=== PATIENT | female | born 1980 | race Caucasian/White ===

== ENCOUNTER 2016-11-30 11:01 | Emergency (ER) | payer OTHER ==
--- NOTE | 2016-11-30 13:18 | EDM.PDOC ---
ED HPI GENERAL MEDICAL PROBLEM - General Chief Complaint: General Stated Complaint: BLOOD CLOTS/BRAIN NOT RIGHT Time Seen by Provider: 11/30/16 12:40 Source of Information: Reports: Patient History Limitations: Reports: No limitations - History of Present Illness INITIAL COMMENTS - FREE TEXT/NARRATIVE: HISTORY AND PHYSICAL: History of present illness: Patient is an obese 36-year-old female presents to the emergency department with concerns about increasing shortness of breath and some atypical chest pain. She states for the last week she has noticed that she is more short of breath with exerting herself or going upstairs. She also has had some centralized chest pain and pressure that does not change with activity or rest. She has not had cough or fever. She feels like she has a difficult time taking a deep breath even here at rest. She has had a DVT and PE in the past. PE was in May of last year. She started Xarelto again at that time and has been told she will need it for life. She has been diagnosed with a protein C deficiency by Dr. Ramachandran in oncology. She feels like her very strong history of anxiety clouds the picture and she can't tell sometimes if the symptoms are related to anxiety or something else. She states she definitely gets much more anxious when there is anything wrong with her help and she gets more worried and this precipitates a bad cycle. She did take her Klonopin about an hour and half prior to arrival but doesn't feel like it is helping her symptoms. No nausea or vomiting. She has had some "heaviness" and tingling in her feet but no calf pain or swelling. She smokes and drinks wine about 4 times a week. No control pills. Review of systems: As per history of present illness and below otherwise all systems reviewed and negative. Past medical history: As per history of present illness and as reviewed below otherwise noncontributory. Surgical history: As per history of present illness and as reviewed below otherwise noncontributory. Social history: No reported history of drug or alcohol abuse. Family history: As per history of present illness and as reviewed below otherwise noncontributory. Physical exam: General. Non toxic, no acute distress. Vitals reviewed and stable. She is very tearful. HEENT: Atraumatic, normocephalic, pupils reactive, negative for conjunctival pallor or scleral icterus, mucous membranes moist, throat clear, neck supple, nontender, trachea midline. Lungs: Clear to auscultation, breath sounds equal bilaterally, chest nontender. Heart: S1S2, regular, negative for clicks, rubs, or JVD. Abdomen: Soft, nondistended, nontender. Negative for masses or hepatosplenomegaly. Negative for costovertebral tenderness. Pelvis: Stable nontender. Genitourinary: Deferred. Rectal: Deferred. Extremities: Atraumatic, negative for cords or calf pain. Neurovascular unremarkable. Neuro: Awake, alert, oriented. Cranial nerves II through XII unremarkable. Cerebellum unremarkable. Motor and sensory unremarkable throughout. Exam nonfocal. Diagnostics: CT angio chest, cbc, cmp, troponin, ekg Impression: #1: Atypical chest pain #2: Dsypnea on exertion Plan: The patient's chest pain was not worsened with exertion or made better with rest. She did have some exertional dyspnea and this is been going on for about a week. She does have history of PEs but is taking her xarelto as prescribed. Cardiac workup, ekg and CT chest angio were all negative. The patient had normal vital signs during her stay in the ED and felt better upon reevaluation, with no therapy. She was comfortable with our workup and with discharge. We discussed needing to follow up with a primary care doctor for further evaluation and testing as needed. She will return for any significant change or worsening of her symptoms. Definitive disposition and diagnosis as appropriate pending reevaluation and review of above. - Related Data Allergies Allergy/AdvReac Type Severity Reaction Status Date / Time No Known Allergies Allergy Verified 11/30/16 11:22 Home Meds: Home Meds ClonazePAM [KlonoPIN] 0.5 mg PO ASDIRECTED PRN 05/16/16 [History] DULoxetine [Cymbalta] 60 mg PO DAILY 05/16/16 [History] Rivaroxaban [Xarelto] 20 mg PO DAILY #30 tablet 05/18/16 [Rx] Past Medical History HEENT History: Reports: Impaired vision Other HEENT History: using eyeglasses Cardiovascular History: Reports: Blood clots/VTE/DVT Psychiatric History: Reports: Anxiety, Depression Endocrine/Metabolic History: Reports: Obesity/BMI 30+ Hematologic History: Reports: Other (see below) Other Hematologic History: protein C deficiency - Past Surgical History Cardiovascular Surgical History: Reports: None Social & Family History - Family History Family Medical History: Unobtainable - Tobacco Use Smoking Status *Q: Current Every Day Smoker Years of Tobacco use: 18 Packs/Tins Daily: 0.5 Used Tobacco, but Quit: No Second Hand Smoke Exposure: No - Caffeine Use Caffeine Use: Reports: Coffee Other Caffeine Use: 2-3 cups per day - Alcohol Use Days Per Week of Alcohol Use: 4 Number of Drinks Per Day: 6 Total Drinks Per Week: 24 - Recreational Drug Use Recreational Drug Use: No ED ROS GENERAL - Review of Systems Review Of Systems: ROS reveals no pertinent complaints other than HPI. ED EXAM, GENERAL - Physical Exam Exam: See Below (See HPI) EKG INTERPRETATION EKG Date: 11/30/16 Time: 12:22 Rhythm: NSR Cisco: normal P-wave: present QRS: normal ST-T: normal QT: normal Course - Vital Signs Last Recorded V/S: Last Vital Signs Temp 36.7 C 11/30/16 11:19 Pulse 64 11/30/16 14:47 Resp 16 11/30/16 14:47 BP 124/80 11/30/16 14:47 Pulse Ox 97 11/30/16 14:47 - Orders/Labs/Meds Orders: Active Orders 24 hr Category Date Time Status EKG Documentation Completion [RC] STAT Care 11/30/16 12:42 Ordered Labs: Laboratory Tests 11/30/16 11/30/16 11/30/16 Range/Units 13:01 13:01 13:01 WBC 5.78 (4.0-11.0) K/uL RBC 4.82 (4.30-5.90) M/uL Hgb 13.4 (12.0-16.0) g/dL Hct 40.6 (36.0-46.0) % MCV 84.2 (80.0-98.0) fL MCH 27.8 (27.0-32.0) pg MCHC 33.0 (31.0-37.0) g/dL RDW Std Deviation 43.1 (28.0-62.0) fl RDW Coeff of Selin 14 (11.0-15.0) % Plt Count 161 (150-400) K/uL MPV 10.90 (7.40-12.00) fL Neut % (Auto) 68.2 (48.0-80.0) % Lymph % (Auto) 23.7 (16.0-40.0) % [place] % (Auto) 5.2 (0.0-15.0) % Eos % (Auto) 2.4 (0.0-7.0) % Baso % (Auto) 0.5 (0.0-1.5) % Neut # (Auto) 3.9 (1.4-5.7) K/uL Lymph # (Auto) 1.4 (0.6-2.4) K/uL [place] # (Auto) 0.3 (0.0-0.8) K/uL Eos # (Auto) 0.1 (0.0-0.7) K/uL Baso # (Auto) 0.0 (0.0-0.1) K/uL Nucleated RBC % 0.0 /100WBC Nucleated RBCs # 0 K/uL Sodium 139 (136-146) mmol/L Potassium 4.2 (3.5-5.1) mmol/L Chloride 111 H (98-110) mmol/L Carbon Dioxide 22 (21-31) mmol/L BUN 13 (6.0-23.0) mg/dL Creatinine 0.7 (0.6-1.5) mg/dL Est Cr Clr Drug Dosing 105.01 mL/min Estimated GFR (MDRD) > 60.0 ml/min Glucose 112 H (60-110) mg/dL Calcium 8.1 L (8.8-10.8) mg/dL Total Bilirubin 0.2 (0.1-1.5) mg/dL AST 19 (5-40) IU/L ALT 25 (8-54) IU/L Alkaline Phosphatase 50 (40-150) Troponin I < 0.10 (0.0-0.29) NG/ML Total Protein 6.2 (6.0-8.0) g/dL Albumin 3.0 L (3.5-5.0) g/dL Globulin 3.2 (2.0-3.5) g/dL Albumin/Globulin Ratio 0.9 L (1.3-2.8) Meds: Medications Discontinued Medications Generic Name Dose Route Start Last Admin Trade Name Freq PRN Reason Stop Dose Admin Iopamidol 50 ml 11/30/16 14:08 11/30/16 14:09 Isovue Multipack-370 (76%) IVPUSH 11/30/16 14:09 50 ml ONETIME STA Administration Departure - Departure Time of Disposition: 14:41 Disposition: Home, Self-Care 01 Condition: good Clinical Impression: Atypical chest pain, Dyspnea on exertion Instructions: Nonspecific Chest Pain Referrals: Tamera Ma DO [Primary Care Provider] - Forms: ED Department Discharge Additional Instructions: The following information is given to patients seen in the emergency department who are being discharged to home. This information is to outline your options for follow-up care. We provide all patients seen in our emergency department with a follow-up referral. The need for follow-up, as well as the timing and circumstances, are variable depending upon the specifics of your emergency department visit. If you don't have a primary care physician on staff, we will provide you with a referral. We always advise you to contact your personal physician following an emergency department visit to inform them of the circumstance of the visit and for follow-up with them and/or the need for any referrals to a consulting specialist. The emergency department will also refer you to a specialist when appropriate. This referral assures that you have the opportunity for follow-up care with a specialist. All of these measure are taken in an effort to provide you with optimal care, which includes your follow-up. Under all circumstances we always encourage you to contact your private physician who remains a resource for coordinating your care. When calling for follow-up care, please make the office aware that this follow-up is from your recent emergency room visit. If for any reason you are refused follow-up, please contact the [facility] Emergency Department at and asked to speak to the emergency department charge nurse. [facility] [address] [place] [phone] - My Orders Last 24 Hours: My Active Orders 11/30/16 12:42 EKG Documentation Completion [RC] STAT - Assessment/Plan Last 24 Hours: My Active Orders 11/30/16 12:42 EKG Documentation Completion [RC] STAT
[2016-11-30 13:37] LABS: CHLORIDE,CL 111 mmol/L (98-110); SODIUM,NA 139 mmol/L (136-146)
[2016-11-30] MEDS ORDERED: Iopamidol 755 MG/ML 500 ML Multipack Bottle IVPUSH STA (14:08)
--- NOTE | 2016-11-30 14:30 | CT ---
EXAMINATION: CTA chest HISTORY: Pain COMPARISON: 05/16/2016 TECHNIQUE: Axial CT images obtained through the chest following the administration of 50 mL of Isovu e-370 in the left arm. Coronal and sagittal reconstructions obtained. FINDINGS: The lungs are clear without focal consolidation. No pleural effusion or pneumothorax. Mild left basilar scarring. There is a trace residual filling defect within the right lower lobe and pul monary artery. No evidence of an acute pulmonary embolism identified. No mediastinal or hilar lympha denopathy. The heart is normal in size without a pericardial effusion. The visualized osseous structures appear normal. IMPRESSION: 1. No acute cardiopulmonary findings. 2. Trace residual filling defect within the right lower lobe pulmonary artery. No evidence of acute pulmonary embolism.
[2016-11-30 14:50] VITALS: BP 124/80
== END 2016-11-30 14:47 | disposition home or self-care (01) ==
LOC: MW.ED 11:01
DX: R07.89 Other chest pain (principal); R06.09 Other forms of dyspnea; F41.8 Other specified anxiety disorders; D68.59 Other primary thrombophilia; Z79.899 Other long term (current) drug therapy; Z86.718 Personal history of other venous thrombosis and embolism
CPT/HCPCS: 36415; 71275; 80053; 84484; 85025; 93005; 99285; Q9967